=== PATIENT | female | born 1950 | race Caucasian/White ===

== ENCOUNTER 2020-10-08 17:39 | Observation (INO) ==
[2020-10-08] MEDS ORDERED: NITROGLYCERIN SL 0.4 MG TABLET SL PRN (18:27)
[2020-10-08 18:39] LABS: Basophils % 0.4 % (0.0-0.8); Eosinophils # 0.2 10*3/uL (0.0-0.87); Eosinophils % 2.3 % (0.00-10.9); Hematocrit 45.7 VOL% (35.7-47.0); Hemoglobin 14.6 GM/DL (12.0-16.0); Immature Granulocytes % 0.2 %; Immature Granulocytes Absolute 0.02 #; Lymphocytes # 2.6 10*3/uL (1.4-4.0); Lymphocytes % 30.8 % (21.3-54.2); Mean Corpuscular HGB Conc 31.9 GM/DL (32-36); Mean Corpuscular Volume 93.1 FL (87-102); Mean Platelet Volume 10.5 FL (9.6-12.0); Neutrophils % 58.3 % (38.7-73.9); Platelet Count 272 T/CUMM (130-400); Red Blood Count 4.91 MC/CUMM (3.8-5.5); Red Cell Distribution Width 13.1 % (9.3-17.3); White Blood Count 8.4 T/CUMM (4-12)
[2020-10-08 18:49] LABS: Albumin 3.9 G/DL (3.4-5.0); Bilirubin,Total 0.4 MG/DL (0.20-1.00); Calcium 9.1 MG/DL (8.5-10.1); Osmolality,Calculated 289.8 MOS/KG (273-304); Potassium 4.1 MMOL/L (3.5-5.1); Total Protein 7.3 G/DL (6.4-8.2)
[2020-10-08 18:53] LABS: INR 0.9; PT Patient Result 10.7 SECS (10.5-12.0)
[2020-10-08] MEDS ORDERED: hydrALAZINE 20 MG/1 ML VIAL IV PRN (20:44)
[2020-10-08] MEDS ORDERED: DEXTROSE 50% 25 GM/50 ML VIAL IV PRN (20:44)
[2020-10-08] MEDS ORDERED: ONDANSETRON 4 MG/2 ML VIAL IV PRN (20:44)
[2020-10-08] MEDS ORDERED: GLUCAGON 1 MG VIAL IM PRN (20:44)
[2020-10-08] MEDS ORDERED: ACETAMINOPHEN 325 MG TABLET PO PRN (20:44)
[2020-10-08] MEDS ORDERED: ENOXAPARIN 80 MG/0.8 ML SYRINGE SUBCUT SCH (21:00)
[2020-10-08] MEDS: ACETAMINOPHEN 500 MG TABLET PO SCH (23:10)
[2020-10-08] MEDS: CARBIDOPA/LEVODOPA 25-100 MG TABLET PO SCH (23:10)
[2020-10-08] MEDS: diphenhydrAMINE CAP 25 MG CAPSULE PO SCH (23:10)
[2020-10-08] MEDS: INSULIN REGULAR 100 UNIT/ML SUBCUT SCH (23:11)
[2020-10-08] MEDS: LACTATED RINGERS 1,000 ML IV SCH (23:12)
[2020-10-09 04:48] LABS: Basophils % 0.4 % (0.0-0.8); Eosinophils # 0.2 10*3/uL (0.0-0.87); Eosinophils % 2.5 % (0.00-10.9); Hematocrit 40.9 VOL% (35.7-47.0); Hemoglobin 12.9 GM/DL (12.0-16.0); Immature Granulocytes % 0.3 %; Immature Granulocytes Absolute 0.02 #; Lymphocytes # 2.8 10*3/uL (1.4-4.0); Lymphocytes % 35.1 % (21.3-54.2); Mean Corpuscular HGB Conc 31.5 GM/DL (32-36); Mean Corpuscular Volume 92.7 FL (87-102); Mean Platelet Volume 10.2 FL (9.6-12.0); Monocytes % 7.7 % (1.7-12.7); Platelet Count 239 T/CUMM (130-400); Red Blood Count 4.41 MC/CUMM (3.8-5.5); Red Cell Distribution Width 12.9 % (9.3-17.3); White Blood Count 7.9 T/CUMM (4-12)
[2020-10-09 05:24] LABS: Albumin 3.2 G/DL (3.4-5.0); Bilirubin,Total 0.4 MG/DL (0.20-1.00); Calcium 8.3 MG/DL (8.5-10.1); Potassium 3.5 MMOL/L (3.5-5.1); Risk Ratio 2.4; Thyroid Stimulating Hormone 5.45 uIU/ml (0.358-3.74); Total Protein 6.4 G/DL (6.4-8.2); VLDL Cholesterol 42.2 MG/DL
[2020-10-09] MEDS: LACTATED RINGERS 1,000 ML IV SCH (06:18)
[2020-10-09] MEDS: INSULIN REGULAR 100 UNIT/ML SUBCUT SCH ×4 (08:53→21:19)
[2020-10-09] MEDS: PANTOPRAZOLE 40 MG TABLET PO SCH (08:53)
[2020-10-09] MEDS ORDERED: ASPIRIN EC 325 MG TABLET PO SCH (09:00)
[2020-10-09] MEDS ORDERED: diphenhydrAMINE CAP 50 MG CAPSULE PO ONE (10:28)
[2020-10-09] MEDS ORDERED: DIAZEPAM 5 MG TABLET PO ONE (10:28)
[2020-10-09] MEDS ORDERED: LIDOCAINE 1% 20 ML VIAL ONE (10:31)
[2020-10-09] MEDS ORDERED: HEPARIN/NACL 0.9% 2 UNITS/ML 2,000 UNIT/1,000 ML BAG IV ONE (10:31)
[2020-10-09] MEDS ORDERED: VERAPAMIL 5 MG/2 ML VIAL ONE (10:35)
[2020-10-09] MEDS ORDERED: NITROGLYCERIN DRIP 50 MG/250 ML BOTTLE IV ONE (10:35)
[2020-10-09] MEDS: SODIUM CHLORIDE 0.9% 1,000 ML IV SCH ×2 (10:44→22:27)
[2020-10-09] MEDS: LOSARTAN 25 MG TABLET PO SCH (10:44)
[2020-10-09] MEDS ORDERED: fentaNYL 100 MCG/2 ML VIAL ONE (10:58)
[2020-10-09] MEDS ORDERED: ENOXAPARIN 60 MG/0.6 ML SYRINGE ONE (11:10)
[2020-10-09] MEDS ORDERED: hydrALAZINE 20 MG/1 ML VIAL ONE (11:15)
[2020-10-09] MEDS ORDERED: ALUMINUM/MAGNES/SIMETH MAX STR 30 ML UDCUP PO PRN ×2 (13:21)
[2020-10-09] MEDS ORDERED: MAGNESIUM HYDROXIDE SUSP 30 ML UDCUP PO PRN (13:21)
[2020-10-09] MEDS ORDERED: KETOROLAC 30 MG/1 ML VIAL IV ONE (14:35)
[2020-10-09] MEDS ORDERED: ATORVASTATIN 40 MG TABLET PO SCH (17:00)
[2020-10-09] MEDS ORDERED: ENOXAPARIN 80 MG/0.8 ML SYRINGE SUBCUT SCH (21:00)
[2020-10-09] MEDS: ACETAMINOPHEN 500 MG TABLET PO SCH (21:19)
[2020-10-09] MEDS: diphenhydrAMINE CAP 25 MG CAPSULE PO SCH (21:19)
[2020-10-09] MEDS: METOPROLOL TARTRATE 25 MG TABLET PO SCH (21:19)
[2020-10-09] MEDS: CARBIDOPA/LEVODOPA 25-100 MG TABLET PO SCH (21:19)
[2020-10-10] MEDS: SODIUM CHLORIDE 0.9% 1,000 ML IV SCH (02:46)
[2020-10-10 05:21] LABS: Basophils % 0.4 % (0.0-0.8); Eosinophils # 0.3 10*3/uL (0.0-0.87); Hematocrit 38.6 VOL% (35.7-47.0); Hemoglobin 12.6 GM/DL (12.0-16.0); Immature Granulocytes % 0.2 %; Immature Granulocytes Absolute 0.02 #; Lymphocytes # 2.9 10*3/uL (1.4-4.0); Lymphocytes % 34.5 % (21.3-54.2); Mean Corpuscular HGB Conc 32.6 GM/DL (32-36); Mean Platelet Volume 10.6 FL (9.6-12.0); Monocytes % 8.2 % (1.7-12.7); Neutrophils % 53.7 % (38.7-73.9); Platelet Count 216 T/CUMM (130-400); Red Blood Count 4.15 MC/CUMM (3.8-5.5); White Blood Count 8.5 T/CUMM (4-12)
[2020-10-10 05:53] LABS: Calcium 8.1 MG/DL (8.5-10.1); Free T4 (Free Thyroxine) 0.88 NG/DL (0.76-1.46); Osmolality,Calculated 283.1 MOS/KG (273-304); Potassium 3.7 MMOL/L (3.5-5.1)
[2020-10-10] MEDS ORDERED: ASPIRIN EC 81 MG TABLET PO SCH (09:00)
[2020-10-10] MEDS: METOPROLOL TARTRATE 25 MG TABLET PO SCH (09:01)
[2020-10-10] MEDS: PANTOPRAZOLE 40 MG TABLET PO SCH (09:01)
[2020-10-10] MEDS: LOSARTAN 25 MG TABLET PO SCH (09:01)
[2020-10-10] MEDS: INSULIN REGULAR 100 UNIT/ML SUBCUT SCH (12:00)
[2020-10-10 12:15] VITALS: BP 130/63
== END 2020-10-10 11:27 | disposition home or self-care (01) ==
LOC: N.EDINP 17:39 → N.ED 17:39 → SUATTDRO 20:44 → N.TELEN 21:33
PROVIDERS: ADMIT Phlebology; ATTEND Internal Medicine
PROC: CLCCHCL (ICD-10-PCS; 2020-10-09 10:45)

== ENCOUNTER 2020-10-13 13:36 | Observation (INO) ==
[2020-10-13] MEDS ORDERED: SODIUM CHLORIDE 0.9% 1,000 ML IV STA (14:04)
[2020-10-13] MEDS ORDERED: ASPIRIN CHEW 81 MG TABLET PO STA (14:05)
[2020-10-13] MEDS ORDERED: NITROGLYCERIN SL 0.4 MG TABLET SL STA (14:05)
[2020-10-13 14:25] LABS: Basophils % 0.4 % (0.0-0.8); Eosinophils # 0.3 10*3/uL (0.0-0.87); Eosinophils % 3.1 % (0.00-10.9); Hematocrit 46.2 VOL% (35.7-47.0); Immature Granulocytes % 0.5 %; Immature Granulocytes Absolute 0.05 #; Lymphocytes # 2.6 10*3/uL (1.4-4.0); Lymphocytes % 26.2 % (21.3-54.2); Mean Corpuscular HGB Conc 32.3 GM/DL (32-36); Mean Corpuscular Volume 91.8 FL (87-102); Mean Platelet Volume 10.9 FL (9.6-12.0); Monocytes % 7.4 % (1.7-12.7); Neutrophils % 62.4 % (38.7-73.9); Platelet Count 240 T/CUMM (130-400); Red Blood Count 5.03 MC/CUMM (3.8-5.5); Red Cell Distribution Width 12.8 % (9.3-17.3); White Blood Count 9.8 T/CUMM (4-12)
[2020-10-13 14:27] LABS: Hemoglobin 14.9 GM/DL (12.0-16.0)
[2020-10-13 14:47] LABS: Alanine Aminotransferase 31 U/L (13-56); Albumin 3.9 G/DL (3.4-5.0); Alkaline Phosphatase 96 U/L (45-117); Aspartate Amino Transferase 25 U/L (0-37); Blood Urea Nitrogen 22 MG/DL (7-18); Calcium 9.4 MG/DL (8.5-10.1); Carbon Dioxide 24 MMOL/L (21-32); Estimated Glom Filtration Rate 85 ML/MIN; Glucose 92 MG/DL (74-106); Osmolality,Calculated 281.4 MOS/KG (273-304); Sodium 140 MMOL/L (136-145); Total Protein 7.6 G/DL (6.4-8.2)
[2020-10-13] MEDS ORDERED: DOCUSATE SODIUM 100 MG CAPSULE PO PRN (18:05)
[2020-10-13] MEDS ORDERED: ALBUTEROL 2.5 MG/3 ML NEB RESP TX PRN (18:05)
[2020-10-13] MEDS ORDERED: DEXTROSE 50% 25 GM/50 ML VIAL IV PRN (18:05)
[2020-10-13] MEDS ORDERED: hydrALAZINE 20 MG/1 ML VIAL IV PRN (18:05)
[2020-10-13] MEDS ORDERED: GLUCAGON 1 MG VIAL IM PRN (18:05)
[2020-10-13] MEDS ORDERED: ACETAMINOPHEN 325 MG TABLET PO PRN (18:05)
[2020-10-13] MEDS ORDERED: guaiFENesin/DM ER 600-30 MG TABLET PO PRN (18:05)
[2020-10-13] MEDS: ENOXAPARIN 40 MG/0.4 ML SYRINGE SUBCUT SCH (19:51)
[2020-10-13] MEDS: CARBIDOPA/LEVODOPA 25-100 MG TABLET PO SCH (21:14)
[2020-10-13] MEDS: METOPROLOL TARTRATE 25 MG TABLET PO SCH (21:14)
[2020-10-13] MEDS: INSULIN REGULAR 100 UNIT/ML SUBCUT SCH (21:17)
[2020-10-14 06:21] LABS: Basophils % 0.4 % (0.0-0.8); Eosinophils # 0.3 10*3/uL (0.0-0.87); Eosinophils % 3.5 % (0.00-10.9); Hematocrit 39.9 VOL% (35.7-47.0); Hemoglobin 13.6 GM/DL (12.0-16.0); Immature Granulocytes % 0.3 %; Immature Granulocytes Absolute 0.02 #; Lymphocytes # 2.5 10*3/uL (1.4-4.0); Lymphocytes % 34.6 % (21.3-54.2); Mean Corpuscular HGB Conc 34.1 GM/DL (32-36); Mean Corpuscular Volume 91.3 FL (87-102); Mean Platelet Volume 10.7 FL (9.6-12.0); Neutrophils % 52.2 % (38.7-73.9); Platelet Count 217 T/CUMM (130-400); Red Blood Count 4.37 MC/CUMM (3.8-5.5); Red Cell Distribution Width 12.8 % (9.3-17.3); White Blood Count 7.1 T/CUMM (4-12)
[2020-10-14 06:42] LABS: Albumin 3.3 G/DL (3.4-5.0); Bilirubin,Total 0.5 MG/DL (0.20-1.00); Calcium 8.6 MG/DL (8.5-10.1); Osmolality,Calculated 279.4 MOS/KG (273-304); Potassium 3.7 MMOL/L (3.5-5.1); Total Protein 6.6 G/DL (6.4-8.2)
[2020-10-14] MEDS: METOPROLOL TARTRATE 25 MG TABLET PO SCH ×2 (08:43→21:14)
[2020-10-14] MEDS: RANOLAZINE 500 MG TABLET PO SCH ×2 (08:43→21:13)
[2020-10-14] MEDS: PANTOPRAZOLE 40 MG TABLET PO SCH (08:43)
[2020-10-14] MEDS: ASPIRIN EC 81 MG TABLET PO SCH (08:51)
[2020-10-14] MEDS: LOSARTAN 25 MG TABLET PO SCH (08:52)
[2020-10-14] MEDS: amLODIPine 5 MG TABLET PO SCH (08:52)
[2020-10-14] MEDS: INSULIN REGULAR 100 UNIT/ML SUBCUT SCH ×4 (08:54→21:14)
[2020-10-14] MEDS ORDERED: LOSARTAN 50 MG TABLET PO SCH (09:00)
[2020-10-14] MEDS ORDERED: ASPIRIN CHEW 81 MG TABLET PO SCH (09:00)
[2020-10-14] MEDS ORDERED: LOSARTAN 25 MG TABLET PO SCH (09:00)
[2020-10-14 09:03] LABS: Bacteria,Urine Occasional /HPF (Few); Bilirubin,Urine Negative (Negative); Blood, Urine Small mg/dL (Negative); Glucose,Urine (UA) Negative (Negative); Ketones,Urine Negative (Negative); Mucus,Urine Occasional /LPF (Occasional); Nitrite,Urine Negative (Negative); Protein,Urine Negative; RBC,Urine 4 /HPF (0-4); Squamous Epithelial Cell,Urine Occasional /HPF (0-10); Urine Appearance Slightly Hazy (Clear); Urine Color Yellow (Yellow); Urine Specific Gravity 1.014 (1.001-1.035)
[2020-10-14] MEDS ORDERED: ASPIRIN EC 81 MG TABLET PO SCH (12:00)
[2020-10-14] MEDS ORDERED: OMEGA 3 ACID ETHYL ESTERS 1 GM CAPSULE PO SCH (17:00)
[2020-10-14] MEDS ORDERED: ATORVASTATIN 40 MG TABLET PO SCH (17:00)
[2020-10-14] MEDS: ENOXAPARIN 40 MG/0.4 ML SYRINGE SUBCUT SCH (17:54)
[2020-10-14] MEDS: CARBIDOPA/LEVODOPA 25-100 MG TABLET PO SCH (21:13)
[2020-10-15 03:12] LABS: Basophils % 0.3 % (0.0-0.8); Eosinophils # 0.2 10*3/uL (0.0-0.87); Eosinophils % 2.5 % (0.00-10.9); Hematocrit 41.4 VOL% (35.7-47.0); Hemoglobin 13.6 GM/DL (12.0-16.0); Immature Granulocytes % 0.2 %; Immature Granulocytes Absolute 0.02 #; Lymphocytes # 2.8 10*3/uL (1.4-4.0); Lymphocytes % 31.7 % (21.3-54.2); Mean Corpuscular HGB Conc 32.9 GM/DL (32-36); Mean Corpuscular Volume 92.2 FL (87-102); Mean Platelet Volume 10.9 FL (9.6-12.0); Monocytes % 7.8 % (1.7-12.7); Neutrophils % 57.5 % (38.7-73.9); Platelet Count 239 T/CUMM (130-400); Red Blood Count 4.49 MC/CUMM (3.8-5.5); Red Cell Distribution Width 12.9 % (9.3-17.3); White Blood Count 8.8 T/CUMM (4-12)
[2020-10-15 03:40] LABS: Calcium 8.8 MG/DL (8.5-10.1); Osmolality,Calculated 279.7 MOS/KG (273-304); Potassium 4.3 MMOL/L (3.5-5.1)
[2020-10-15] MEDS: INSULIN REGULAR 100 UNIT/ML SUBCUT SCH (09:19)
[2020-10-15] MEDS: LOSARTAN 25 MG TABLET PO SCH (09:59)
[2020-10-15] MEDS: amLODIPine 5 MG TABLET PO SCH (09:59)
[2020-10-15] MEDS: PANTOPRAZOLE 40 MG TABLET PO SCH (09:59)
[2020-10-15] MEDS: RANOLAZINE 500 MG TABLET PO SCH (10:00)
[2020-10-15] MEDS: METOPROLOL TARTRATE 25 MG TABLET PO SCH (10:00)
[2020-10-15] MEDS: ASPIRIN EC 81 MG TABLET PO SCH (10:01)
[2020-10-15 10:22] VITALS: BP 142/61
== END 2020-10-15 11:05 | disposition home or self-care (01) ==
LOC: N.ED 13:36 → N.EDINP 13:36 → SUATTDRO 18:05 → N.EDINP 19:57 → N.TELES 20:05
PROVIDERS: ADMIT Internal Medicine; ATTEND Internal Medicine